=== PATIENT | male | born 1950 | race African-American/Black ===

== ENCOUNTER 2017-03-03 03:54 | Inpatient (IN) | payer OTHER ==
[~2017-03-03] VITALS: Ht 180.3 cm; Wt 129.4 kg
[2017-03-03] VITALS (44 sets, daily range): BP systolic 129–191; BP diastolic 70–127
--- NOTE | ~2017-03-03 | 2DMMODE ---
[facility] [address] [place] [address] 2 D/M-MODE ECHOCARDIOGRAM Name: LASHONDA BECKETT Room #: 246[facility] ..#: [id number] Admission: 03/03/17 Attend Phys: Jai Dawson, Discharge: Date of : 52 Date of Service: 03/03/17 1317 Report #: [id number] THIS REPORT FOR: //name// APPROVED REPORT Study performed: 03/03/2017 12:04:30 EXAM: Comprehensive 2D, Doppler, and color-flow Echocardiogram Patient Location: Bedside Room #: 246 Other Information Study Quality: Adequate Indications CVA/TIA Echo Enhancing Agent Indication: Rule out Shunt Agent(s) / Amount(s) Used: Agitated Saline 6 cc 2D Dimensions RVDd: 42.47 mm LVEF(%): 65.93 (>50%) IVSd: 15.26 (7-11mm) LVOT Diam: 22.27 (18-24mm) LVDd: 56.33 mm PWd: 13.85 (7-11mm) Ascending Ao: 37.78 (22-36mm) LVDs: 35.62 (25-40mm) Aortic Root: 32.62 mm IVC: 21.00 mm York's LVEF: 65.93 % Volumes Left Atrial Volume (Systole) Single Plane 4CH: 72.38 mL Single Plane 2CH: 99.19 mL LA ESV Index: 44.00 mL/m2 Aortic Valve AoV Peak Aric.: 1.71 m/s AO Peak Gr.: 11.68 mmHg LVOT Max P.12 mmHg LVOT Max V: 1.13 m/s RANDY Vmax: 2.58 cm2 Mitral Valve E/A Ratio: 1.6 MV Decel. Time: 238.80 ms [facility] [place] [address] 2 D/M-MODE ECHOCARDIOGRAM Name: LASHONDA BECKETT Room #: 246-[facility] IN M.R.#: [id number] Admission: 03/03/17 Attend Phys: Jai Dawson, Discharge: Date of : 52 Date of Service: 03/03/17 1317 Report #: [id number] E Max Aric.: 0.74 m/s MV A Aric.: 0.45 m/s MV PHT: 69.25 ms IVRT: 138.41 ms Pulmonary Valve PV Peak Aric.: 1.24 m/s PV Peak Gr.: 6.18 mmHg Pulmonary Vein P Vein S: 0.49 m/s P Vein A: 0.20 m/s P Vein D: 0.32 m/s P Vein A Dur.: 110.7 msec P Vein S/D Ratio: 1.53 Tricuspid Valve RAP Estimate: 10.00 mmHg Left Ventricle The left ventricle is normal size. Mild concentric left ventricular hypertrophy. There is no ventricular septal defect visualized. The left ventricular systolic function is normal. The left ventricular ejection fraction is within the normal range. LVEF is 65%. Moderate diastolic dysfunction is present (pseudonormal filling). Right Ventricle Right ventricle is dilated. The right ventricular systolic function is normal. Atria Left atrium is dilated. Injection of bubbles documented no interatrial shunt. The right atrium size is normal. Aortic Valve The aortic valve is normal in structure. Mild aortic regurgitation. There is no aortic valvular stenosis. Mitral Valve The mitral valve is normal in structure. No mitral regurgitation. No evidence of mitral valve stenosis. Tricuspid Valve The tricuspid valve is normal in structure. Trace tricuspid regurgitation. Unable to assess PA pressure. Pulmonic Valve The pulmonary valve is normal in structure. There is no pulmonic valvular regurgitation. [address] [address] 2 D/M-MODE ECHOCARDIOGRAM Name: LASHONDA BECKETT Room #: 246[facility].#: [id number] Admission: 03/03/17 Attend Phys: Jai Dawson, Discharge: Date of : 52 Date of Service: 03/03/17 1317 Report #: [id number] Great Vessels Aortic root is mildly dilated. The ascending aorta appears normal. IVC is mildly dilated and collapses about 50% with inspiration. Pericardium There is no pericardial effusion. There is no pleural effusion. <Conclusion> The left ventricular systolic function is normal. Mild concentric left ventricular hypertrophy. LVEF 65%. Left atrium is dilated. The aortic valve is grossly normal in structure. Mild aortic regurgitation, no stenosis. Injection of bubbles documented no shunting The mitral valve is normal in structure. No mitral regurgitation. Pulmonary artery pressure could not be reliably ascertained There is no pericardial effusion. <ELECTRONICALLY SIGNED> By: Abdi Ocasio MD, FACC 03/03/171316 16 16 Abdi Ocasio MD, FACC /INF
--- NOTE | ~2017-03-03 | HC ---
[facility] [place] [address] CONSULTATION Name: LASHONDA BECKETT Room #: 246-P [facility] IN M.R.#: [id number] Admission: 03/03/17 Attend Phys: Jai Dawson DO Discharge: 03/04/17 Date of : 52 Report #: [id number] THIS REPORT FOR: //name// CC: Jai Natarajan REASON FOR CONSULTATION: Hypertension. PRIMARY CARE PHYSICIAN: Salvatore Natarajan MD HISTORY OF PRESENT ILLNESS: The patient is a 66-year-old gentleman with a history of hypertension. He reports being out of medicines for several weeks. Apparently, this morning around 3:30, awakened with weakness of his right arm and leg. He had slurred speech. Paramedics were summoned, and he was brought to the emergency department where he was diagnosed with stroke and given thrombolytic therapy at 6:00 a.m. In the ICU, he has had blood pressure readings that have been in the 150-170 range. He has been evaluated by rehabilitation services as well as neurology who have recommended permissive hypertension with a blood pressure treatment of greater than systolic 190. He denies chest pain, pressure or ischemic type symptoms. He denies heart failure symptoms, palpitations, near-syncope or syncope. An echocardiogram was performed earlier today, which I have reviewed. This demonstrated normal left ventricular systolic function with LVH, no shunting and no valvular heart disease. ALLERGIES: No known drug allergies. MEDICATIONS: His home medicine which he has been out of includes losartan 100 mg daily. PAST MEDICAL HISTORY: His past history in medical records have been reviewed and include a history of hypertension, borderline diabetes, dyslipidemia. SOCIAL HISTORY: He is a nonsmoker, nondrinker. FAMILY HISTORY: Notable for father who had a heart attack at 60. REVIEW OF SYSTEMS: All systems negative except as that noted above. PHYSICAL EXAMINATION: GENERAL: A pleasant gentleman who has an expressive aphasia, is alert and responds in full sentences. VITAL SIGNS: Blood pressure is 170/113, heart rate of 55 and regular. He is afebrile, 5 feet 11 inches tall, 191 pounds. HEENT: There are neither xanthelasma, subcutaneous xanthomata, oral mucosal or digital cyanosis or kyphoscoliosis present. CHEST: Clear to auscultation and percussion. [facility] [address] [place] [address] CONSULTATION Name: LASHONDA BECKETT Room #: [address] [place] [address] IN M.R.#: [id number] Admission: 03/03/17 Attend Phys: Jai Dawson DO Discharge: 03/04/17 Date of : 52 Report #: [id number] CARDIOVASCULAR: Regular rate and rhythm with normal S1, S2. S4 gallop is present. ABDOMEN: Soft and nontender. EXTREMITIES: Without cyanosis, clubbing or edema. Radial pulses are 2+. NEUROLOGIC: He has right-sided weakness. LABORATORY AND DIAGNOSTIC DATA: EKG sinus rhythm with LVH with repolarization abnormality. Carotid duplex demonstrates 70% to 80% left mid internal carotid artery stenosis. MRA suggests severe diffuse atherosclerotic plaquing. There is high grade atherosclerotic narrowing throughout the basilar artery on the left. Sodium is 141, potassium 3.8. Troponin 0. Creatinine 1.2. LDL 145. White count 5.2, hemoglobin 13, hematocrit 41, platelet count 150. Sed rate of 8. IMPRESSION: 1. Stroke. 2. Hypertension. 3. Dyslipidemia. RECOMMENDATIONS: 1. Resumption of ARB therapy; aggressive risk factor modification including aggressive lipid-lowering. 2. As per neurology recommendations, treatment of systolic hypertension greater than 190 in the setting of an acute stroke, more aggressive therapy to follow. Thank you for asking me to participate in the patient's care. <ELECTRONICALLY SIGNED> By: Abdi Ocasio MD, FACC 03/05/17 1630 [id number] 0109 Abdi Ocasio MD, FACC /nt
--- NOTE | ~2017-03-03 | EKG ---
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 : 1950 Requested By: Celeste Gutierrez Order Number: [id number] MD: Abdi Ocasio Measurements Intervals [place] Rate: 60 P: 49 VA: 188 QRS: 19 QRSD: 112 T: 117 QT: 407 QTc: 407 Interpretive Statements Sinus rhythm Ventricular premature complex Abnormal T, consider ischemia, lateral leads No previous ECG available for comparison Electronically Signed On 03-03-2017 7:29:55 CDT by Abdi Ocasio [email or web address] <ELECTRONICALLY SIGNED> By: Abdi Ocasio MD, [facility] 03/03/17 0729 [id number] [id number] Abdi Ocasio MD, FACC /EPI
--- NOTE | ~2017-03-03 | HC ---
[facility] [address] CONSULTATION Name: LASHONDA BECKETT Room #: 246-P [facility] IN M.R.#: [id number] Admission: 03/03/17 Attend Phys: Jai Dawson DO Discharge: Date of : 52 Report #: [id number] THIS REPORT FOR: //name// CC: Jai Natarajan DATE OF SERVICE: 03/03/2017 HISTORY OF PRESENT ILLNESS: This is a 66-year-old male patient, who was seen by me at the referral from Dr. Gutierrez from emergency room. This is a complex patient. The patient is aphasic at the moment and is not able to provide much history because his speech output is extremely limited, so I talked to the . This patient woke up at 03:30 in the morning and was not able to move the right side. He was brought to emergency room and the ambulance people documented that his symptom fully resolved on the way to emergency room. The patient had a reoccurrence of the symptoms, but it fully resolved in CT scan again. So, there is true clear cut documentation that the patient's symptom fully resolved and then came back. If we reset the time clock for the onset of symptoms, then the onset of symptom according to emergency room physician was about 1.5 hour or so. The patient's blood pressure was high. As I understand, the emergency room physician gave a small amount of medication to them. When I saw the patient, the blood pressure was running in fact low at 146/96. Emergency room physician went over the exclusion criteria and this patient apparently does not have any exclusion criteria. I talked to the family and they do not think this patient has any exclusion criteria either. REVIEW OF SYSTEMS: Indicate when the patient came in, his blood pressure was high, but patient is not a known hypertensive. I looked at the report of the CT scan of the head in this patient and I reviewed the films and I talked to Dr. Campos and neither one of us feel that CT has much changes, looks normal to both of us. The patient denies any previous history of stroke or bleed. Review of systems is mostly from the family. The patient still works and he is fully functional. He is pretty anxious and depressed because of his inability to talk. He denies any previous history of CVA. I did 14-point review of systems on him, which was mostly noncontributory in this patient. PAST MEDICAL HISTORY: Negative for stroke. FAMILY HISTORY: Negative for early age stroke. SOCIAL HISTORY: He apparently does not drink or smoke. PHYSICAL EXAMINATION: The patient's examination was carried out numerous times. His examination is pretty persistent. He can comprehend things, but he has very limited speech output. Whatever speech output he has, is un-understandable, but he can follow commands. He understands things very well. [facility] [address] [place] [address] CONSULTATION Name: LASHONDA BECKETT Room #: 246-P [facility] IN M.R.#: [id number] Admission: 03/03/17 Attend Phys: Jai Dawson DO Discharge: Date of : 52 Report #: [id number] His comprehension is intact. Cranial nerve examination 2-12 was carried out. He does have a right facial palsy, but I do not think he has hemianopsia, but I cannot tell for sure. He has virtually no movement in the right upper extremity. Most of the time and sometime, he has a small flicker of movement. He does have slight movement in the right lower extremity, but I will estimate it to be about 2/5. Sensory system examination is difficult in this patient, but I think he can appreciate the position sense. His reflexes are symmetrical. I could not look at the fundus. He does not have any atrial fibrillation. He does not have any respiratory difficulty. He is obese. His blood pressure is 146/96, respirations 14, pulse is 54. LABORATORY DATA: His labs are mostly unremarkable. His platelet count is 150, his pro-time is normal. His INR was normal. I reviewed this patient's CT angio with radiologist. He apparently does have a pretty extensive disease in the left carotid. He has a calcified plaque there. He also has intracranial cranial disease. IMPRESSION: Left-sided cerebrovascular accident. This is most likely subcortical. This may be secondary to embolization from the carotid or can be lacunar cerebrovascular accident for any other reason. He does have a significant carotid disease as well as intracranial disease making it very likely that it is cerebrovascular accident. I had a long talk with the patient. I had multiple subsequent talks with the patient and the family, and I discussed with emergency room physician. I discussed with them that the things are not straight forward in his case. I discussed with them that we cannot say with certainty that the first episode was transient ischemic attack and was not a stroke. His symptom lasted only a small amount of time. By using the old definition of transient ischemic attack, where we call it transient ischemic attack when symptoms resolve in 24 hours. The definition is not very favored these days, and we do not have time to do the imaging studies, to do further workup. Since there is documentation of his symptoms fully resolved, and we can reset the clock, but we cannot be certain that he did not have a cerebrovascular accident prior to his last onset of the symptom even if his symptoms have fully resolved by the time he came to emergency room and came back. That makes it very difficult to make a decision. His cerebrovascular accident looked dense. He has an option of getting TPA by resetting the clock or not having the TPA, and family and the patient needs to make that decision. After discussing with them indication, potential complications and alternatives, the family and the patient decided they want TPA. They fully understand the complication of intracerebral hemorrhage and the fact that intracerebral hemorrhage is frequently fatal and almost always disabling if it happens. His blood pressure has been running low, but he only received a small amount of medication as I understand from emergency room physician. I asked them to give a fluid bolus and tried to raise his blood pressure to some extent, but not by using any vasopressive agent. [facility] [address] [place] [address] CONSULTATION Name: LASHONDA BECKETT Room #: 246-P ADM IN M.R.#: [id number] Admission: 03/03/17 Attend Phys: Jai Dawson DO Discharge: Date of : 52 Report #: [id number] I have carried out multiple exams on this patient and discussed with the family, and each time they wanted to do TPA, and we will see how he does, and he will need further management depending upon how he tolerates TPA. Once again, I want to stress that we have talked to the family multiple times, and I discussed with them that there is no clearcut path in this situation. With resetting the time, his symptoms are within 1.5 hours or so according to the emergency room physician, but definitely less than 3 hours, and his TPA was given after explaining things to them very clearly, and the fact that complication rate is going to be higher on him, but his stroke is dense and the situation is not clear, and the decision is subjective. All other options were discussed with the family in detail. It was also discussed with the patient, who is competent to make his decision because he can comprehend everything. More than 50 minutes of face to face time was spent taking care of this patient and majority of that time was spent counseling the patient and and cordinating his care <ELECTRONICALLY SIGNED> By: Manfred Navarrete MD 03/04/17 0639 0625 0758 Manfred Navarrete MD /nt
--- NOTE | ~2017-03-03 | HC ---
[facility] [place] [address] CONSULTATION Name: LASHONDA BECKETT Room #: 246-P [facility] IN M.R.#: [id number] Admission: 03/03/17 Attend Phys: Jai Dawson DO Discharge: Date of : 52 Report #: [id number] THIS REPORT FOR: //name// CC: Jai Natarajan DATE OF SERVICE: 03/03/2017 HISTORY OF PRESENT ILLNESS: The patient is a 66-year-old male with history of hypertension, admitted with slurred speech, right-sided weakness. He underwent emergency TPA. Evaluation revealed multiple intracranial stenoses, moderate stenosis, left proximal internal carotid artery. Neurology is involved. He is currently in the ICU post-TPA. He notes that he has had nice resolution of symptomatology. He is able to talk again and move his right upper and right lower extremity. He denies any residual deficit. I am seeing him in rehabilitation medicine consultation. PAST MEDICAL HISTORY: Includes hypertension and borderline diabetes mellitus and hyperlipidemia. MEDICATIONS: Please see the full medication listing. HABITS: No history of tobacco or alcohol abuse. SOCIAL HISTORY: Lives in a house with his split level, premorbid ambulator without gait aids. does not work outside the home. REVIEW OF SYSTEMS: No current complaints of chest pain, shortness of breath or abdominal discomfort. ALLERGIES: No known drug allergies. PHYSICAL EXAMINATION: He is a pleasant 66-year-old male in no obvious distress. Last recorded temperature 96.6, pulse 55, respirations 16, blood pressure 157/82. The patient is alert. He is pleasant. HEENT appeared to be benign. Cranial nerves are grossly intact. Facies are symmetric. He is able to verbalize quite well from me, appears to be a reasonable historian. He has full range of motion and full strength of both upper and lower extremities without obvious focal weakness. No obvious focal sensory decreased. Tone appeared to be intact bilaterally. He was not ambulated. He continues in the Intensive Care Unit for right now. ASSESSMENT: A 66-year-old male with the following problem list: 1. Cerebrovascular accident with slurred speech and right-sided weakness, now improved post TPA. [address] [address] CONSULTATION Name: LASHONDA BECKETT Room #: 246-P ADM IN M.R.#: [id number] Admission: 03/03/17 Attend Phys: Jai Dawson DO Discharge: Date of : 52 Report #: [id number] 2. Multiple intracranial stenoses with moderate stenosis, left proximal internal carotid artery. 3. Hypertension. 4. Diabetes mellitus. 5. Exogenous obesity. PLAN: He has been on bed rest status post the TPA. The therapist will then be getting him up once he is allowed for a functional mobility and ADL assessment. Speech therapy will evaluate as well. Would anticipate that he will likely be able to return directly back to the home setting as he further medically stabilizes. We will be glad to follow along with you in the meantime. By: 1029 1606 Reinaldo Lou MD /nt
[2017-03-03 04:13] LABS: ABSOLUTE NEUTROPHILS 2.4 thou/uL (1.4-8.2); BASOPHILS 0.5 % (0.0-2.0); HEMATOCRIT 41.3 % (42.0-52.0); HEMOGLOBIN 13.7 gm/dL (14.0-18.0); LYMPHOCYTES 36.2 % (24.0-44.0); MANUAL DIFF NO; MCH 28.3 pg (26.0-34.0); MCHC 33.2 g/dL (28.0-37.0); MCV 85.1 fL (80.0-100.0); MONOCYTES 11.7 % (1.0-8.0); PLATELET COUNT 150 thou/uL (150-400); POLYS 46.6 % (36.0-66.0); RBC 4.85 mil/uL (4.50-6.00); RDW 14.9 % (10.5-14.5); WBC 5.2 thou/uL (4.0-11.0)
[2017-03-03 04:20] LABS: PROTIME 10.1 Seconds (9.3-11.4)
[2017-03-03 04:22] LABS: POC CA IONIZED 4.6 mg/dL (4.5-5.3); POC CREATININE 1.2 mg/dL (0.6-1.3); POC HEMOGLOBIN 14.3 g/dL (14.0-18.0); POC POTASSIUM 3.8 mmol/L (3.5-5.1)
[2017-03-03] MEDS ORDERED: LOSARTAN POTAS100 MG PO (05:03)
[2017-03-03 06:44] LABS: TC:HDL 5.2 Ratio (Not establshd)
[2017-03-03 07:09] LABS: TSH 3.794 uIU/mL (0.358-3.740)
[2017-03-03 18:10] LABS: FREE T4 0.9 ng/dL (0.82-1.77)
[2017-03-04] VITALS (24 sets, daily range): BP systolic 116–160; BP diastolic 66–108
[2017-03-04 03:18] LABS: GLYCOHEMOGLOBIN (HGB A1C) 5.8 % (4.8-5.6)
[2017-03-06 14:06] LABS: ALPHA TOCOPHEROL 10.3 mg/L (5.3-17.5)
== END 2017-03-04 17:15 | DRG 62 ==
LOC: ER 03:54 → ICU 05:57 → EROBS 05:57 → ICU 07:08
PROVIDERS: Emergency Medicine; Psychiatry & Neurology Neurology
DX: I63.9 Cerebral infarction, unspecified (principal); G81.91 Hemiplegia, unspecified affecting right dominant side; R47.81 Slurred speech; E78.5 Hyperlipidemia, unspecified; I10 Essential (primary) hypertension; E11.9 Type 2 diabetes mellitus without complications; I65.22 Occlusion and stenosis of left carotid artery; E66.09 Other obesity due to excess calories; I66.12 Occlusion and stenosis of left anterior cerebral artery; I65.1 Occlusion and stenosis of basilar artery; I66.22 Occlusion and stenosis of left posterior cerebral artery; I66.01 Occlusion and stenosis of right middle cerebral artery; R00.1 Bradycardia, unspecified; Z82.49 Family history of ischemic heart disease and other diseases of the circulatory system; Z68.39 Body mass index [BMI] 39.0-39.9, adult; Z80.9 Family history of malignant neoplasm, unspecified; Z82.3 Family history of stroke; Z83.3 Family history of diabetes mellitus; Z79.82 Long term (current) use of aspirin; Z79.899 Other long term (current) drug therapy; W06.XXXA Fall from bed, initial encounter; Y93.89 Activity, other specified; Y92.092 Bedroom in other non-institutional residence as the place of occurrence of the external cause; Y99.8 Other external cause status
CPT/HCPCS: 10078

== ENCOUNTER 2017-03-04 17:07 | Inpatient (IN) | payer OTHER ==
[~2017-03-04] VITALS: Ht 180.3 cm; Wt 136.1 kg
--- NOTE | ~2017-03-04 | H ---
[facility] [place] [address] HISTORY AND PHYSICAL Name: LASHONDA BECKETT Room #: 516-1 ADM IN M.R.#: [id number] Admission: 03/04/17 Attend Phys: Reinaldo Lou MD Discharge: Date of : 52 Report #: [id number] THIS REPORT FOR: //name// CC: Reinaldo Natarajan DATE OF SERVICE: 03/05/2017 ADMITTING PHYSICIAN: Dr. Reinaldo Lou. CHIEF COMPLAINT: Mobility and self-care deficits due to cerebrovascular accident. HISTORY OF PRESENT ILLNESS: The patient is a very pleasant 66-year-old right hand dominant male with a history of hypertension who was admitted to [facility] on 03/03/2017 with slurred speech and right-sided weakness. He is seen today in the company of his . A workup was performed. He was felt to have a cerebrovascular accident and he received TPA. He was seen by Internal Medicine. An MRI of the brain demonstrated an acute or subacute infarct involving the left lower luigi at the level of the middle cerebellar peduncle. MRI of the [place] [facility] [place] showed severe diffuse atherosclerotic plaque narrowing throughout the cerebral arterial vasculature. MRI of the carotids was read as normal on the right and a moderately severe narrowing of the left internal carotid. It was determined that he would need additional rehabilitation for when he was found to be medically ready for discharge. Secondary to a decline in his overall function and the need for rehabilitation management of his complex medical condition as outlined above, he is now being admitted to the inpatient rehabilitation program. Note, I am covering for Dr. Reinaldo Lou and he will return to the office on March 07. PAST MEDICAL HISTORY: As above, also pertinent for hypertension, moderate obesity, borderline diabetes mellitus and hyperlipidemia. PAST FAMILY HISTORY: Heart disease, cancer, diabetes, hypertension, and stroke. MEDICATIONS: Reviewed. Please see the written documentation of this history and physical. His medications have been reconciled. SOCIAL HISTORY: He lives with his in their own home. It is a split level home. 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 Tobacco use, never smoked. FUNCTIONAL HISTORY: Before admission, he was fully independent with mobility and activities of daily living. [address] [address] HISTORY AND PHYSICAL Name: LASHONDA BECKETT Room #: 516-1 ADM IN .R.#: [id number] Admission: 03/04/17 Attend Phys: Reinaldo Lou MD Discharge: Date of : 51 Report #: [id number] ALLERGIES: No known drug allergies. REVIEW OF SYSTEMS: As above. Specifically, he denies chest pain, shortness of breath, fevers and chills. He has right-sided weakness. Otherwise, the remainder of a 14-point review is negative except for what was stated above. PHYSICAL EXAMINATION: GENERAL: No acute distress, well-developed, well-nourished, afebrile. BMI of 39.8. CARDIOVASCULAR: S1, S2. LUNGS: Clear to auscultation. ABDOMEN: Soft, nontender, positive bowel sounds. EXTREMITIES: Calves are nontender. LYMPHATICS: No cervical adenopathy. MUSCULOSKELETAL: Functionally, he shows inability to dorsiflex his right wrist or extend his fingers on the right. He is unable to dorsiflex his right ankle. He has no power to lift his right arm and will need support. He also has very limited motion of his right leg. Tone is flaccid on the right. NEUROLOGIC AND PSYCHIATRIC: Coordination is impaired. Muscle stretch reflexes 1/4 and symmetric. Sensation impaired in his feet. He is alert and able to answer my questions. He has mild right-sided neglect and a mild right visual field deficit. He was alert and oriented, able to answer my questions well. He was pleasant and cooperative. There is mild expressive aphasia identified. He appears to have good executive receptionist, pleasant and cooperative with the exam. IMPRESSION: Mobility and self-care deficits in a 66-year-old right hand dominant male secondary to: 1. Dominant-sided hemiparesis, right side, flaccid tone. 2. Acute cerebrovascular accident involving the left lower luigi at the level of the middle cerebellar peduncle, infarction. 3. Mild right visual field deficit. 4. Expressive aphasia 5. Dysarthria. 6. Improving comprehension deficit. 7. Mild right-sided visual field deficit and neglect. 8. Right foot drop. 9. At risk for shoulder-hand syndrome due to severity of right upper extremity weakness. 10. Dysphagia, currently receiving a mechanical soft diet with thin liquids. 11. Right foot drop, likely requiring an ankle foot orthosis. 12. Hypertension. 13. Borderline diabetes mellitus type 2. 14. Hyperlipidemia. PLAN: 1. Admit to the rehabilitation unit for comprehensive therapies. [address] [address] HISTORY AND PHYSICAL Name: LASHONDA BECKETT Room #: 516-1 ADM IN Bart.#: [id number] Admission: 03/04/17 Attend Phys: Reinaldo Lou MD Discharge: Date of : 51 Report #: [id number] 2. Admit to Dr. Lou's service. 3. Please see the plan of care, post-admission physician evaluation and admission orders for full details of his rehabilitation care plan. 4. Discussed the rehabilitation program with him and his in detail and they are in full agreement with the program. 5. Discussed recovery process and pathophysiology with the patient and his . 6. Developed a rehabilitation program with his therapy team, reviewed the case with Britni, speech therapy today and she would like him to have a mechanical soft with thin liquid diet based on his performance this morning with her on testing. 7. Weekly team conferences to discuss his rehabilitation progress. 8. Functional electrical stimulation may be beneficial for the right upper and lower extremity to help promote return. 9. Use of sling for right upper extremity to prevent shoulder-hand syndrome. 10. The absence of active right wrist dorsiflexion and finger extension indicates more severe functional disability. We will need to work with occupational therapy on bracing 11. Bowel and bladder program. 12. Use of AFO for right lower extremity foot drop. POST-ADMISSION PHYSICIAN EVALUATION: A post-admission physician evaluation has been completed. The patient's preadmission screening was reviewed in its entirety by this examiner. The current clinical status is supported by the information contained within. The patient is an appropriate candidate to undergo a comprehensive inpatient rehabilitation program consisting of PT, OT and ST 3 hours a day for at least 5 days per week. Furthermore, nothing has changed since the preadmission screening was completed to suggest that the patient would not be able to tolerate or benefit from the rehabilitation program. It is my opinion that inpatient rehabilitation, rather than group home, is more appropriate for the patient due to multiple medical needs, requiring comprehensive followup care. The patient is at risk of clinical complications during participation in rehabilitation including falls, additional strokes, worsening of diabetes, worsening of deficits, aspiration pneumonia, hypertension management, prevention of DVT, pressure ulcers, falls and even . My plan to manage his comorbid medical conditions which could impact his participation in rehabilitation is to consult Internal Medicine and to follow him closely during his rehabilitation course. SUMMARIZATION OF FINDINGS: The patient is receiving inpatient rehabilitation due to the following functional impairments: 1. Dominant-sided hemiparesis, flaccid tone. 2. Right foot drop. [facility] [address] [place] [address] HISTORY AND PHYSICAL Name: LASHONDA BECKETT Room #: 516-1 ADM IN [facility].#: [id number] Admission: 03/04/17 Attend Phys: Reinaldo Lou MD Discharge: Date of : 51 Report #: [id number] 3. Right visual field impairment. 4. Right-sided neglect. 5. Dysphagia. 6. Dysarthria. 7. Expressive aphasia greater than receptive aphasia. 8. Gait impairment. 9. Ataxia. IDENTIFIED INTERVENTIONS: Include physical therapy, occupational therapy and speech therapy to address mobility, self-care deficits, communication, cognitive screening and swallowing impairments. Physical Medicine and Rehabilitation will provide management of his rehabilitation care plan. Internal Medicine will follow him for multiple medical issues. Rehabilitation nursing care 24 hours a day will be available for care needs. managed services sales consultant will be available for discharge planning and medical equipment needs. A dietitian consultation may be needed for nutritional purposes. ESTIMATED LENGTH OF STAY: Approximately 21 days, which is in agreement with the preadmission screen. ANTICIPATED FUNCTIONAL OUTCOME: Modified independent with mobility and self-care skills. This is a realistic goal based on his previous level of function and progress thus far with therapies. ANTICIPATED DISCHARGE DESTINATION: Home with family. He will likely need home health services at that time versus an outpatient intensive rehabilitation day program. MEDICAL PROGNOSIS: Fair. He will continue to receive internal medicine followup. ANTICIPATED THERAPIES: Physical therapy, occupational therapy, speech therapy, 3 hours a day 5 days a week for anticipated duration of 21 days. SUMMARIZATION OF TREATMENT PLAN: The patient will continue to receive an inpatient rehabilitation program as outlined above in an effort to improve his overall function and return home at a modified independent level within 21 days. <ELECTRONICALLY SIGNED> By: Reinaldo Lou MD 03/15/17 1505 [id number] Dion Villanueva DO /nt
--- NOTE | ~2017-03-04 | PLAN ---
[facility] [place] [address] REHAB UNIT PLAN OF CARE Name: LASHONDA BECKETT Room #: 516-1 ADM IN M.R.#: [id number] Admission: 03/04/17 Attend Phys: Reinaldo Lou MD Discharge: Date of : 51 Report #: [id number] THIS REPORT FOR: //name// CC: Reinaldo Natarajan DATE OF SERVICE: 03/07/2017 The patient is seen back today in followup. Temperature is 98.4, pulse 59, respirations 20, blood pressure 116/77. The patient apparently had some good recovery initially after his TPA, but then regressed. He has dense right upper extremity plegia. He can shrug his shoulder. Right lower extremity, he does have grade 2 right knee extension to grade 3-. No right knee flexion and no ankle dorsiflexion. Sensation appeared reasonably intact to simultaneous stimulation. Functionally, he is mod assist with basic transfers, bed to wheelchair is max assist, he has been max assist to sit to stand. In occupational therapy, lower body dressing is dependent. In speech therapy, he has mild comprehensive deficits. He is on a mechanical soft, thin liquid diet. ASSESSMENT: 1. Acute cerebrovascular accident, left lower luigi with infarction. 2. Dominant right-sided hemiparesis with essentially right upper extremity plegia and right lower extremity paresis. Flaccid tone. 3. Dysarthria with some depressed right nasolabial fold. 4. Mild right visual deficit. 5. Hypertension. 6. Borderline diabetes mellitus type 2. 7. Hyperlipidemia. 8. At risk for shoulder hand syndrome due to the severity of the right upper extremity weakness. PLAN: The overall plan of care is based on the preadmission screen, post-admission physician evaluation and information garnered from therapy assessments. 1. Estimated length of stay is likely long with his low level. 2. Medical prognosis is reasonably good. 3. Anticipated interventions includes the interdisciplinary acute inpatient rehabilitation program. PT, OT and speech rehab nursing, case management and the multiple nutrition consultant physicians. 4. Anticipated functional outcomes at this point would be to try to work with him to become independent at a wheelchair level. Family does have a split level home, which is going to be an issue. 5. Expected therapy by discipline includes PT, OT and speech 1 hour per day [address] [address] REHAB UNIT PLAN OF CARE Name: LASHONDA BECKETT Room #: 516-1 ADM IN .R.#: [id number] Admission: 03/04/17 Attend Phys: Reinaldo Lou MD Discharge: Date of : 51 Report #: [id number] each 5 days a week throughout the duration of the acute inpatient rehabilitation stay. <ELECTRONICALLY SIGNED> By: Reinaldo Lou MD 03/15/17 1515 [id number] Reinaldo oLu MD /nt
--- NOTE | ~2017-03-04 | HC ---
[facility] [place] [address] CONSULTATION Name: LASHONDA BECKETT Room #: 516-1 ADM IN M.R.#: [id number] Admission: 03/04/17 Attend Phys: Reinaldo Lou MD Discharge: Date of : 51 Report #: [id number] THIS REPORT FOR: //name// CC: Reinaldo Natarajan DATE OF SERVICE: 03/12/2017 NEUROBEHAVIORAL STATUS EXAM AGE: 66. ATTENDING PHYSICIAN: Reinaldo Lou M.D. HERB DOCTOR: Gerard Becker, PhD CLINICAL PRESENTATION: The patient is a 66-year-old -[place] male admitted to the [facility] rehabilitation unit for a comprehensive inpatient rehabilitation program to improve functional mobility and activities of daily living and self-care secondary to cerebrovascular accident. He presented to the [facility] on 03/03/2017, with slurred speech and hemiparesis. He was diagnosed as having a CVA and administered TPA. An MRI of the brain demonstrated an acute or subacute infarction involving the left lower luigi at the level of the middle cerebellar peduncle. MRI of the [place] reveals severe diffuse atherosclerotic plaque narrowing. Clinical impression on admission was a dominant side hemiparesis, acute CVA involving the left lower luigi at the middle cerebellar peduncle, mild right visual field deficit, expressive aphasia, dysarthria, improving comprehension, mild right-sided visual field deficit, right foot drop, and dysphagia, right and hypertension, borderline diabetes mellitus type 2 and hyperlipidemia. A complete description of his medical condition and history along with medications can be found in his medical record. Neuropsychological consultation was requested to provide assistance in the assessment of cognitive and emotional status and to provide recommendations and services. Prior to this most recent medical event, he was living independently with his in their home. 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 He is a high school graduate. He has 2 children. There is no reported history of anxiety or depression. There is also no history of alcohol/drug abuse or use of tobacco. TECHNIQUES UTILIZED: Clinical interview, review of medical records, staff consultation and behavioral observation, mini mental status exam 2 standard version and family interview -- . [address] [address] CONSULTATION Name: LASHONDA BECKETT Room #: 516-1 ADM IN M.R.#: [id number] Admission: 03/04/17 Attend Phys: Reinaldo Lou MD Discharge: Date of : 51 Report #: [id number] EXAMINATION FINDINGS: The patient was alert and cooperative with the assessment. He accurately described events surrounding his admission. He does present with expressive speech deficits and dysarthria. Auditory comprehension appears within normal limits. The patient does not report subjective anxiety or depression. However, his indicates that at times he is more irritable. He was tearful during his hospitalization. The patient also indicates difficulty with sleep. Appetite is within normal limits. Occasional difficulty with memory is acknowledged. Speech does require more effort and he is described as getting more fatigued with therapies. When more fatigue deficits in generative speech. His performance on the MMSE 2 brief version is in the mild range of impairment with a raw score of 13 of 16 and a T score of 35. He is 3/3 for initial registration, 4/5 for orientation to time, 5/[address]. He is 1/3 for immediate recall of 3 items after a brief time delay and distraction. His performance is in the borderline range on the MMSE 2 standard version with a raw score of 23/30 and a T score of 33, which is at the fourth percentile and suggesting mild to moderate impairment. He was 2/5 for serial sevens, 2/2 for naming, 1/1 for repetition. He was 3/3 for auditory comprehension. He could read and follow a single command. Writing was not assessed, but he was able to generate a sentence. Drawing could not be completed as a result of the right hemiparesis. Letter fluency was in the mild range of impairment with a raw score of 15 and a T score at 38. Category fluency was in the mild range of impairment with a raw score at 32 and a T score at 38. Overall, verbal fluency was in the mild to moderate range with a T score of 34. DIAGNOSTIC IMPRESSION: Neurocognitive disorder due to vascular disease, with intermittent depression, mild to moderate severity. RECOMMENDATIONS: Continued psychological services as needed to assist in adjustment. The patient will benefit from verbal praise and complements about participation in therapies. Reassurance in regard to his medical condition and recovery will also be of benefit. His will need to provide assistance in the management of medication and nutrition. Compensatory strategies should primarily focus on memory and strategies for improvement in verbal fluency along with attention and concentration. Thank you very much for allowing me to provide the consultation on this patient. <ELECTRONICALLY SIGNED> By: Gerard Becker, PhD 03/19/17 1533 1623 [id number] Gerard Becker, PhD /nt
[~2017-03-04 17:07] MED LIST: LOSARTAN POTAS100 MG PO
[2017-03-04 17:45] VITALS: BP 146/86
[2017-03-05 03:41] VITALS: BP 140/80
[2017-03-05 16:00] VITALS: BP 129/75
[2017-03-06 05:08] VITALS: BP 127/88
[2017-03-06 16:00] VITALS: BP 125/63
[2017-03-07 05:30] VITALS: BP 116/77
[2017-03-07 06:08] LABS: CALCIUM 8.4 mg/dL (8.5-10.1); CREATININE 1.1 mg/dL (0.7-1.3)
[2017-03-07 16:30] VITALS: BP 134/67
[2017-03-07 21:15] VITALS: BP 140/79
[2017-03-08 04:03] VITALS: BP 108/71
[2017-03-08 11:15] VITALS: BP 143/97
[2017-03-09 05:34] VITALS: BP 129/82
[2017-03-09 15:45] VITALS: BP 125/77
[2017-03-10 05:26] VITALS: BP 110/67
[2017-03-10 14:55] VITALS: BP 125/79
[2017-03-10 14:57] VITALS: BP 107/70
[2017-03-11 03:31] VITALS: BP 128/77
[2017-03-11 03:32] LABS: CALCIUM 8.5 mg/dL (8.5-10.1); POTASSIUM 3.9 mmol/L (3.5-5.1)
[2017-03-11 04:35] LABS: ABSOLUTE NEUTROPHILS 2.5 thou/uL (1.4-8.2); BASOPHILS 0.5 % (0.0-2.0); EOSINOPHILS 5.4 % (0.0-3.0); HEMATOCRIT 38.6 % (42.0-52.0); HEMOGLOBIN 12.8 gm/dL (14.0-18.0); LYMPHOCYTES 29.4 % (24.0-44.0); MCH 28.6 pg (26.0-34.0); MCV 86.5 fL (80.0-100.0); MONOCYTES 11.5 % (1.0-8.0); PLATELET COUNT 157 thou/uL (150-400); POLYS 53.2 % (36.0-66.0); RBC 4.47 mil/uL (4.50-6.00); RDW 14.6 % (10.5-14.5); WBC 4.7 thou/uL (4.0-11.0)
[2017-03-11 04:47] LABS: MANUAL DIFF NO
[2017-03-11 19:10] VITALS: BP 139/89
[2017-03-12 05:57] VITALS: BP 113/76; BP 136/84
[2017-03-12 16:00] VITALS: BP 128/73
[2017-03-13 05:42] VITALS: BP 106/75
[2017-03-13 08:55] VITALS: BP 121/75
[2017-03-13 16:07] VITALS: BP 143/81
[2017-03-14 04:54] VITALS: BP 124/76
[2017-03-14 09:07] VITALS: BP 139/75
[2017-03-14 10:06] VITALS: BP 106/62
[2017-03-14 16:00] VITALS: BP 132/78
[2017-03-15 05:31] VITALS: BP 110/69
[2017-03-15 16:00] VITALS: BP 120/72
[2017-03-16 06:06] VITALS: BP 110/70
[2017-03-16 08:30] VITALS: BP 121/77
[2017-03-16 18:54] VITALS: BP 126/70
[2017-03-17 05:33] VITALS: BP 118/70
[2017-03-17 15:39] VITALS: BP 132/83
[2017-03-18 06:04] VITALS: BP 111/61
[2017-03-18 08:50] VITALS: BP 122/69
[2017-03-18 15:56] VITALS: BP 133/89
[2017-03-19 05:33] VITALS: BP 121/67
[2017-03-19 09:00] VITALS: BP 111/63
[2017-03-19 16:10] VITALS: BP 139/82
[2017-03-20 05:10] VITALS: BP 103/74
[2017-03-20 16:00] VITALS: BP 130/85
[2017-03-21 04:35] VITALS: BP 107/56
[2017-03-21 08:05] VITALS: BP 122/78
[2017-03-21 16:00] VITALS: BP 140/69
[2017-03-22 04:48] VITALS: BP 120/76
[2017-03-22 15:41] VITALS: BP 115/70
[2017-03-23 05:21] VITALS: BP 110/86
[2017-03-23 08:05] VITALS: BP 126/85
[2017-03-23 16:49] VITALS: BP 128/94
[2017-03-24 06:08] VITALS: BP 103/77
[2017-03-24 06:11] LABS: ABSOLUTE NEUTROPHILS 1.9 thou/uL (1.4-8.2); BASOPHILS 0.8 % (0.0-2.0); EOSINOPHILS 5.2 % (0.0-3.0); HEMOGLOBIN 12.9 gm/dL (14.0-18.0); LYMPHOCYTES 37.7 % (24.0-44.0); MCH 28.6 pg (26.0-34.0); MCV 84.2 fL (80.0-100.0); MONOCYTES 8.7 % (1.0-8.0); PLATELET COUNT 204 thou/uL (150-400); POLYS 47.6 % (36.0-66.0); RBC 4.52 mil/uL (4.50-6.00); RDW 13.7 % (10.5-14.5)
[2017-03-24 06:21] LABS: MANUAL DIFF NO
[2017-03-24 06:23] LABS: CALCIUM 8.8 mg/dL (8.5-10.1); CREATININE 1.2 mg/dL (0.7-1.3); MAGNESIUM 1.8 mg/dL (1.8-2.4)
[2017-03-24 10:13] VITALS: BP 145/80
[2017-03-24 16:00] VITALS: BP 122/85
[2017-03-25 05:42] VITALS: BP 143/66
[2017-03-25 16:38] VITALS: BP 126/75
[2017-03-26 05:26] VITALS: BP 134/86
[2017-03-26 16:51] VITALS: BP 130/88
[2017-03-27 04:55] VITALS: BP 128/76
[2017-03-27 09:21] VITALS: BP 121/78
[2017-03-27 16:53] VITALS: BP 126/84
[2017-03-28 05:42] VITALS: BP 123/83
[2017-03-28 08:55] VITALS: BP 130/84
[2017-03-28 15:43] VITALS: BP 131/84
[2017-03-29 05:58] VITALS: BP 141/75
[2017-03-29 08:00] VITALS: BP 148/92
[2017-03-29 16:00] VITALS: BP 154/94
[2017-03-30 05:45] VITALS: BP 121/64
[2017-03-30] MEDS ORDERED: PROZAC20 MG PO (10:38)
[2017-03-30] MEDS ORDERED: PROTONIX40 M1 PO (10:38)
[2017-03-30] MEDS ORDERED: LOSARTAN POTAS100 MG PO (10:38)
[2017-03-30] MEDS ORDERED: MIRALAX17 GM PO (10:38)
[2017-03-30] MEDS ORDERED: ASPIRIN EC325 M1 PO (10:38)
[2017-03-30] MEDS ORDERED: SENNA PO (10:38)
[2017-03-30] MEDS ORDERED: TYLENOL325 MG PO (10:38)
[2017-03-30] MEDS ORDERED: FELODIPINE 5 MG5 M1 PO (10:38)
[2017-03-30] MEDS ORDERED: COLACE100 MG PO (10:38)
[2017-03-30] MEDS ORDERED: LIPITOR 20 MG T20 M1 PO (10:38)
[2017-03-30 16:00] VITALS: BP 144/98
[2017-03-31 06:51] VITALS: BP 109/72
[2017-03-31 16:38] VITALS: BP 109/72
[2017-04-01 05:43] VITALS: BP 123/64
[2017-04-01 15:48] VITALS: BP 147/87
[2017-04-02 05:51] VITALS: BP 122/79
[2017-04-02 08:06] VITALS: BP 127/90
== END 2017-04-02 14:30 | disposition home health service (06) | DRG 65 ==
PROVIDERS: Internal Medicine Endocrinology, Diabetes & Metabolism; Nurse Practitioner
DX: I63.9 Cerebral infarction, unspecified (principal); G81.91 Hemiplegia, unspecified affecting right dominant side; Z68.41 Body mass index [BMI] 40.0-44.9, adult; R47.1 Dysarthria and anarthria; I10 Essential (primary) hypertension; E78.5 Hyperlipidemia, unspecified; R47.81 Slurred speech; R47.01 Aphasia; R13.10 Dysphagia, unspecified; F01.50 Vascular dementia, unspecified severity, without behavioral disturbance, psychotic disturbance, mood disturbance, and anxiety; F32.9 Major depressive disorder, single episode, unspecified; E66.9 Obesity, unspecified; M21.371 Foot drop, right foot; K59.00 Constipation, unspecified; M21.331 Wrist drop, right wrist; Z82.49 Family history of ischemic heart disease and other diseases of the circulatory system; Z80.9 Family history of malignant neoplasm, unspecified; Z83.3 Family history of diabetes mellitus; Z82.3 Family history of stroke
CPT/HCPCS: 10112

== ENCOUNTER 2017-04-08 16:36 | Emergency (ER) | payer OTHER ==
[~2017-04-08] VITALS: Ht 185.4 cm; Wt 132.9 kg
[~2017-04-08 16:36] MED LIST changes: +ASPIRIN EC325 M1 PO; +COLACE100 MG PO; +FELODIPINE 5 MG5 M1 PO; +LIPITOR 20 MG T20 M1 PO; +MIRALAX17 GM PO; +PROTONIX40 M1 PO; +PROZAC20 MG PO; +SENNA PO; +TYLENOL325 MG PO
[2017-04-08] MEDS ORDERED: COZAAR 50 MG TA50 M2 PO (17:05)
== END 2017-04-08 17:29 | disposition home or self-care (01) ==
LOC: ER 16:36
DX: I10 Essential (primary) hypertension (principal); E78.00 Pure hypercholesterolemia, unspecified; Z86.73 Personal history of transient ischemic attack (TIA), and cerebral infarction without residual deficits; F32.9 Major depressive disorder, single episode, unspecified; Z79.82 Long term (current) use of aspirin

== ENCOUNTER → 2017-06-20 | Outpatient (CLI) | payer OTHER ==
[~2017-06-20] MED LIST changes: +COZAAR 50 MG TA50 M2 PO
--- NOTE | ~2017-06-20 | SLE ---
[facility] [address] [place] [address] POLYSOMNOGRAPHY STUDY Name: LASHONDA BECKETT Room #: REG [facility].#: [id number] Admission: 06/20/17 Attend Phys: Real Byrd MD Discharge: Date of : 51 Report #: [id number] THIS REPORT FOR: //name// CC: Real Natarajan HISTORY: This is a 67-year-old, height 6 feet, weight 299 pounds. Usually goes to bed at 10:00 p.m., gets out of bed at 7:00 a.m., feels refreshed, positive snoring, no daytime somnolence. COMMENTS: Per the casting technician note, the patient spent all of his study on his back, head elevated 30-35 degrees, PAC and PVC is noted, trigeminal rhythm noted. BASELINE PORTION: Total recording time 281 minutes, sleep efficiency 36%. RESPIRATORY SUMMARY: Central apnea 0, mixed apnea 4, obstructive apnea 12, and hypopnea 26. Apnea-hypopnea index 25 events per sleep hour. Respiratory effort related arousal 0 events per sleep hour. All sleep and supine position. Periodic limb movement with arousal index of 0.6 events per sleep hour. A 69% of time in snoring. Low oxygen saturation 82%, spending 4% of recording time less than 90%. CPAP TITRATION: Titrated 8 and 9 cm water pressure, 9 cm water pressure for 41 minutes, which 21 minutes was in REM sleep. Central apnea 1, hypopnea, 1, apnea-hypopnea index 2.9 events per sleep hour. Low oxygen saturation 91%. IMPRESSION: 1. Obstructive sleep apnea/hypopnea, G47.33. 2. PAC/PVC in rhythm abnormality. 3. Periodic limb movement with arousal index 0.6 events per sleep hour. 4. CPAP improves the patient's apnea-hypopnea index, snoring and desaturation. SUGGESTIONS: 1. In addition to his specific therapy, the patient should be cautioned regarding driving or operating dangerous machinery unless fully alert. The patient will be cautioned regarding the use of respiratory depressants. TSH and weight loss is recommended. 2. Oral appliance or appropriate surgery may be considered with appropriate followup. 3. The usual sleep apnea suggestions are recommended. 4. An auto titrating CPAP between 5 and 12 cm water pressure is initially [facility] [address] [place] [address] POLYSOMNOGRAPHY STUDY Name: LASHONDA BECKETT Room #: REG [facility]#: [id number] Admission: 06/20/17 Attend Phys: Real Byrd MD Discharge: Date of : 51 Report #: [id number] recommended. During our study, a Respironics Gail View large mask was used with heated humidity. 5. Further evaluation regarding arrhythmias is recommended. 6. If signs and symptoms do not improve with therapy, further evaluation recommended. Please do not hesitate to contact me if I may be of further assistance. By: 53 [id number] Real Byrd MD /katrin
== END ==
LOC: SLEEPLAB 05-31 09:13 → EDSTATUS 05-31 09:14 → SLEEPLAB 05-31 09:17
DX: G47.33 Obstructive sleep apnea (adult) (pediatric) (principal)

== ENCOUNTER → 2017-10-31 | Outpatient (CLI) | payer OTHER | LOC: RAD 15:41 | DX: M17.12 Unilateral primary osteoarthritis, left knee (principal) ==

== ENCOUNTER → 2020-05-26 | Outpatient (CLI) | payer OTHER | LOC: ULTRA 13:12 | PROVIDERS: ATTEND Internal Medicine Nephrology | DX: N28.1 Cyst of kidney, acquired (principal); N18.3 Chronic kidney disease, stage 3 (moderate) ==

== ENCOUNTER → 2020-07-02 | Outpatient (CLI) | payer OTHER | LOC: RAD 15:47 | PROVIDERS: ATTEND Internal Medicine Pulmonary Disease | DX: I51.7 Cardiomegaly (principal); I77.810 Thoracic aortic ectasia ==

== ENCOUNTER → 2020-07-09 | Outpatient (CLI) | payer OTHER | LOC: CAT 10:06 → SLEEPLAB 16:11 → CAT 16:36 | PROVIDERS: ATTEND Internal Medicine Pulmonary Disease | DX: J18.1 Lobar pneumonia, unspecified organism (principal) ==

== ENCOUNTER → 2020-07-09 | Outpatient (CLI) | payer OTHER ==
--- NOTE | 2020-07-11 11:26 | SLE ---
[facility] [place] [address] POLYSOMNOGRAPHY STUDY Name: LASHONDA BECKETT Room #: REG [facility]#: [id number] Admission: 07/09/20 Attend Phys: Spike Olivares MD Discharge: Date of : 52 Report #: [id number] THIS REPORT FOR: //name// CC: Salvatore Olivares MD DATE OF SERVICE: 07/10/2020 HOME SLEEP STUDY REFERRING PHYSICIAN: Dr. Spike Olivares. The patient is a 70-year-old who weighs 320 pounds with a BMI of 43.4. The patient's Lester score was 6. The patient underwent a home sleep study performed at [facility]. Total recording time was 465 minutes. During the night study, the patient had 57 obstructive apneas, 245 central apneas and 69 mixed apneas. The patient's AHI was 51 per hour. Nocturnal oximetry study revealed an average oxygen saturation of 95% with lowest of 62%. A 55 minutes were spent in oxygen saturation of less than 90% and 26 minutes with saturation of less than 85%. Mean heart rate was 57 beats per minute with a maximum of 138 beats per minute. IMPRESSION: 1. Severe sleep apnea. It was mixed apnea with combination of central and obstructive apneas. 2. Nocturnal hypoxia secondary to sleep apnea. RECOMMENDATIONS: 1. The patient has mixed apnea. The patient would benefit from in-lab CPAP titration study. Patient may need BIPAP. 2. Once the patient is optimally treated, then follow up in 4-6 weeks to assess compliance with PAP therapy and to document clinical improvement. 3. Weight loss is advised. 4. Avoid CENTRAL SUPPLY WORKER depressants. 5. Cautioned regarding driving until symptoms of sleep apnea resolve with the above recommendations. <ELECTRONICALLY SIGNED> By: Walker Enciso MD 07/11/20 1126 5 0824 Walker Enciso MD /nt
== END ==
LOC: SLEEPLAB 14:55
PROVIDERS: ATTEND Internal Medicine Pulmonary Disease
DX: G47.30 Sleep apnea, unspecified (principal); R09.02 Hypoxemia

== ENCOUNTER → 2020-07-17 | Outpatient (CLI) | payer OTHER | LOC: SJCVCIMAG | PROVIDERS: ATTEND Internal Medicine Cardiovascular Disease | DX: I35.1 Nonrheumatic aortic (valve) insufficiency (principal); I51.7 Cardiomegaly ==

== ENCOUNTER → 2020-08-05 | Outpatient (CLI) | payer OTHER | LOC: SJCVCIMAG 07-23 09:05 | PROVIDERS: ATTEND Internal Medicine Cardiovascular Disease | DX: R06.02 Shortness of breath (principal); R06.00 Dyspnea, unspecified; R94.31 Abnormal electrocardiogram [ECG] [EKG]; E78.5 Hyperlipidemia, unspecified; I10 Essential (primary) hypertension; E78.00 Pure hypercholesterolemia, unspecified; Z79.899 Other long term (current) drug therapy ==

== ENCOUNTER → 2020-08-13 | Outpatient (CLI) | payer OTHER | LOC: LAB 08:17 | PROVIDERS: ATTEND Neuromusculoskeletal Medicine & OMM | DX: Z20.828 Contact with and (suspected) exposure to other viral communicable diseases (principal) ==

== ENCOUNTER → 2020-08-21 | Outpatient (CLI) | payer OTHER | LOC: LAB 14:09 | PROVIDERS: ATTEND Internal Medicine Pulmonary Disease | DX: Z20.828 Contact with and (suspected) exposure to other viral communicable diseases (principal) ==

== ENCOUNTER → 2020-08-25 | Outpatient (CLI) | payer OTHER ==
--- NOTE | 2020-09-03 16:47 | SLE ---
[facility] [place] [address] POLYSOMNOGRAPHY STUDY Name: LASHONDA BECKETT Room #: REG ALETA Samir#: [id number] Admission: 08/25/20 Attend Phys: Walker Enciso MD Discharge: Date of : 52 Report #: [id number] THIS REPORT FOR: cc: Salvatore Natarajan,Walker Yee MD ~ CC: Walker OLIVARES MD DATE OF SERVICE: 08/25/2020 SLEEP STUDY ATTENDING PHYSICIAN: Spike Olivares M.D. The patient is a 70-year-old who weighs 320 pounds with a BMI of 43.4. The patient had a home sleep study and was found to have severe sleep apnea. The patient had mixed sleep apnea and was noted to have 57 obstructive apneas, 245 central apneas and 69 mixed apneas. The patient's AHI was 51 per hour. The patient was referred for in-lab CPAP titration study. During the night of the study, the patient spent 474 minutes in bed and slept for 286 minutes with a low sleep efficiency of 60%. Sleep latency was 39 minutes with a REM latency of 132 minutes. Sleep architecture showed increased stage 1 and stage 2 sleep, absent slow wave and normal REM sleep. EKG monitoring revealed an average heart rate of 53 beats per minute with a maximum of 92 beats per minute. There were PVCs seen throughout the night. No sustained arrhythmias observed. No clinically significant PLM seen. The patient was started on CPAP at a pressure of 5 cm water and titrated up to 9 cm water. However, optimum CPAP pressure was not achieved due to persistent central apneas. At a pressure of 9 cm water, the patient slept for 65.7 minutes. The patient had supine sleep, but no REM sleep. The patient's AHI was 62 per hour, which also included 53 central apneas. At a lower pressure of 8 cm water, the patient slept for 37 minutes. The patient's AHI was reduced to 13 per hour, which included 7 hypopneas and 1 central apnea. Oxygen saturations remained in the low to mid 80s due to apneas. Optimum CPAP pressure was not achieved. The patient would benefit from BiPAP. IMPRESSION: 1. Severe mixed sleep apnea diagnosed by home sleep study. 2. No clinically significant periodic limb movements. [facility] [address] [place] [address] POLYSOMNOGRAPHY STUDY Name: LASHONDA BECKETT Room #: REG CURTISFrance Buenrostro#: [id number] Admission: 08/25/20 Attend Phys: Walker Enciso MD Discharge: Date of : 52 Report #: [id number] 3. Abnormal EKG with PVC'S throughout the night. RECOMMENDATIONS: 1. Optimum CPAP pressure was not achieved on the night of the study due to persistent central apneas. I would recommend that the patient should be tried on an auto BiPAP at a maximum IPAP pressure of 20 cm water and a minimum EPAP pressure of 10 cm water with pressure support of 4. 2. The patient should have a followup in 4-6 weeks to assess compliance and to document clinical improvement. I would recommend review of the download data and if the AHI remains more than 10 per hour and if it is predominantly central apneas, then a backup rate of 10 should be added to the BiPAP. 3. The patient's EKG was abnormal and should have a cardiac evaluation to rule out any underlying structural heart disease. 4. The patient should also have an echocardiogram to rule out any significant cardiomyopathy, which may be contributing to the central component of the sleep apnea. 5. Cautioned regarding driving until symptoms of sleep apnea resolve with the above recommendation. 6. 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 <ELECTRONICALLY SIGNED> By: Walker Enciso MD 09/03/20 1647 [id number] Walker Enciso MD /nt
== END ==
LOC: SLEEPLAB 13:46
PROVIDERS: ATTEND Internal Medicine Critical Care Medicine
DX: G47.33 Obstructive sleep apnea (adult) (pediatric) (principal)

== ENCOUNTER → 2021-04-24 | Outpatient (CLI) | payer OTHER | LOC: RAD 10:35 | PROVIDERS: ATTEND Internal Medicine Pulmonary Disease | DX: R05 Cough (principal); G47.33 Obstructive sleep apnea (adult) (pediatric) ==

== ENCOUNTER 2021-06-02 15:15 | Inpatient (IN) | payer OTHER ==
[~2021-06-02] VITALS: Ht 180.3 cm; Wt 137.9 kg
[2021-06-02 15:19] VITALS: BP 129/97
[2021-06-02 16:15] LABS: URINE BLOOD 3+ (Negative); URINE COLOR YELLOW; URINE GLUCOSE-RANDOM* NEGATIVE (Negative); URINE KETONES 2+ (Negative); URINE NITRITE-REFLEX NEGATIVE (Negative); URINE PROTEIN (DIPSTICK) 2+ (Negative); URINE SPECIFIC GRAVITY 1.025 (1.005-1.035)
[2021-06-02 16:16] LABS: ABSOLUTE NEUTROPHILS 12.4 thou/uL (1.4-8.2); BASOPHILS 0.3 % (0.0-2.0); EOSINOPHILS 0.4 % (0.0-3.0); HEMATOCRIT 41.4 % (42.0-52.0); LYMPHOCYTES 7.3 % (24.0-44.0); MCHC 31.5 g/dL (28.0-37.0); MCV 88.9 fL (80.0-100.0); MONOCYTES 7.2 % (1.0-8.0); PLATELET COUNT 184 thou/uL (150-400); POLYS 84.8 % (36.0-66.0); RBC 4.66 mil/uL (4.50-6.00); RDW 15.1 % (10.5-14.5); WBC 14.6 thou/uL (4.0-11.0)
[2021-06-02 16:17] LABS: ICTOTEST (BILI CONFIRMATORY) Negative (Negative); URINE BILIRUBIN NEGATIVE (Negative); URINE CLARITY HAZY; URINE LEUKOCYTES-REFLEX 1+ (Negative)
[2021-06-02 16:35] LABS: SQUAMOUS None Seen /LPF (0-3); URINE RBC >20 Many /HPF (NONE SEEN); URINE WBC-REFLEX >25 Many /HPF (0-5)
[2021-06-02 16:36] LABS: CASTS None Seen /LPF (None Seen); CRYSTALS None Seen /LPF (None Seen)
[2021-06-02 16:38] LABS: APTT 26.7 Seconds (24.5-32.8); INR 1.17; PROTIME 12.7 Seconds (10.5-12.1)
[2021-06-02 17:14] LABS: CREATININE 1.7 mg/dL (0.7-1.3); POTASSIUM 4.4 mmol/L (3.5-5.1)
[2021-06-02 17:15] LABS: ALBUMIN 3.6 g/dL (3.4-5.0); CALCIUM 8.5 mg/dL (8.5-10.1)
[2021-06-02 17:16] LABS: TOTAL PROTEIN 7.8 g/dL (6.4-8.2)
[2021-06-02 17:30] LABS: TOTAL BILIRUBIN 1.8 mg/dL (0.2-1.0)
[2021-06-02 19:11] VITALS: BP 146/74
[2021-06-02 20:38] VITALS: BP 143/82
--- NOTE | 2021-06-03 02:47 | NUR ---
PT ADMITTED TO THE UNIT FROM THE ER WITH C/O PAINFUL URINATION .PT IS A/O X4.PT IS ON BEDREST FOR PT/OT TO EVALUATE.PT HAS RT SIDED WITH POST STROKE.PT USES A WHEELCHAIR AT HOME .PT IS ON 2L OF O2 VIA NC.PT HAS A ROBERTSON CATHETER IN PLACE.ADMISSION REASSESSMENT DONE.WILL CONTINUE TO MONITOR PER POC
[2021-06-03 06:43] LABS: HEMOGLOBIN 11.7 gm/dL (14.0-18.0); MCH 28.8 pg (26.0-34.0); MCHC 32.5 g/dL (28.0-37.0); MCV 88.5 fL (80.0-100.0); RBC 4.07 mil/uL (4.50-6.00); RDW 15.1 % (10.5-14.5); WBC 13.4 thou/uL (4.0-11.0)
[2021-06-03 06:57] LABS: CALCIUM 8.1 mg/dL (8.5-10.1); CREATININE 1.3 mg/dL (0.7-1.3); POTASSIUM 3.8 mmol/L (3.5-5.1)
--- NOTE | 2021-06-03 07:16 | EKG ---
[address] [place] [address] ELECTROCARDIOGRAM REPORT Name: LASHONDA BECKETT Room #: 463-P ADM IN M.R.#: [id number] Admission: 06/02/21 Attend Phys: Sloan Mccullough MD Discharge: Date of : 52 Report #: [id number] [facility] ED Test Date: 2021-06-02 Test Time: 16:05:33 Pat Name: LASHONDA BECKETT Department: Room: 463 Gender: M Deputy Chief Executive: zack : 1950 Requested By: Gaudencio Huertas Order Number: [id number] MD: Leo Wilkins Measurements Intervals [place] Rate: 101 P: 36 WI: 167 QRS: -28 QRSD: 107 T: 58 QT: 326 QTc: 423 Interpretive Statements Sinus tachycardia Ventricular premature complex Borderline left axis deviation Borderline T wave abnormalities Compared to ECG 03/03/2017 04:51:49 Sinus rhythm no longer present Possible ischemia no longer present T-wave abnormality still present Electronically Signed On 06-03-2021 7:16:51 CDT by Leo Wilkins [email or web address] <ELECTRONICALLY SIGNED> By: Leo Wilkins MD, MERGED WITH [facility] 06/03/21 0716 1605 [id number] Leo Wilkins MD, MERGED WITH [facility] /EPI
[2021-06-03 07:52] VITALS: BP 123/60
--- NOTE | 2021-06-03 13:34 | NUR ---
Alert and orientated X4. Calm, cooperative and compliant. Stated he had scrotal pain this AM but then it resolved. Spoke with after lunch and she called desk and stated was crying. Went to assess and pt was sitting calmly in chair. Ranked scrotal pain 5/10, T 98.9 orally, Tylenol given. Up ambulating with walker with PT. When entered room at 0730 FIO2 was off, O2 sat 94% without s/o distress. Breath sounds clear, bilaterally equal. Reg HR auscultated. Color pink with brisk capillary refill and palpable peripheral pulses. Yellow urine per weaver, leaking at insertion site, scrotom swollen, painful at times. Active bowel sounds over soft, large, rounded abdomen. Currently sitting in chair. NS infusing per R AC at 75 cc/hr, site soft and flat, flushes without difficulty.
--- NOTE | 2021-06-03 16:35 | NUR ---
PT ADMITTED RELATED TO UTI, FEVER, SEPSIS. CM REVIEWED CHART AND SPOKE WITH CARE TEAM. CM MET WITH PT AT BEDSIDE THIS DAY. PT APPEARED TO BE A&0 X4. CM ROLE INTRODUCED. PT INDICATED HE RESIDES IN AN APARTMENT WITH HIS SPOUSE. PT INDICATED NO STEPS TO ENTER AND 1 STEP INSIDE. 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 PT INDICATED HE HAD HH IN THE PAST AND HAD BEEN ON 5N IN 2017 FOLLOWING STROKE. PT INDICATED HE HOPES TO BE ABLE TO DC HOME ONCE MEDICALLY STABLE. CARE TEAM INDICATING THAT PT MAY NEED 6 WEEKS IV ABX UPON DC. CM SPOKE WITH PT ABOUT HOME INFUSION VS SKILLED. HE IS TO DISCUSS WITH HIS AND INDICATE PREFERANCE. CM TO FOLLOW INDICATED WITH DC PLANNING.
[2021-06-03 16:59] VITALS: BP 121/76
[2021-06-03 17:29] VITALS: BP 145/87
[2021-06-03 19:32] VITALS: BP 119/71
--- NOTE | 2021-06-04 03:19 | NUR ---
ASSUMED PT CARE AT 1935. PT IS ALERT AND ORIENTEX4. PT HAS R SIDED WEAKNESS PT HAS ROBERTSON IN PLACE. PT IS TOLERATING RA. PT C/O ABD PAIN WHICH MANAGED BY PRN PAIN MEDS. PT DID NOT VERBALIZE ANY OTHER CONCERNS AND NO VISIBLE SIGN OF DISTRESS WAS NOTED. FALL PRECAUTIONS IN PLACE WITH CALL LIGHT WITHIN REACH. WILL CONTINUE TO MONITOR.
[2021-06-04 07:58] VITALS: BP 146/95
[2021-06-04 10:40] LABS: HEMATOCRIT 37.1 % (42.0-52.0); HEMOGLOBIN 11.9 gm/dL (14.0-18.0); MCH 28.1 pg (26.0-34.0); MCV 87.9 fL (80.0-100.0); RBC 4.22 mil/uL (4.50-6.00); RDW 14.7 % (10.5-14.5); WBC 11.3 thou/uL (4.0-11.0)
[2021-06-04 10:54] LABS: CALCIUM 8.6 mg/dL (8.5-10.1); CREATININE 1.2 mg/dL (0.7-1.3); MAGNESIUM 1.8 mg/dL (1.8-2.4); POTASSIUM 3.7 mmol/L (3.5-5.1)
[2021-06-04 11:40] VITALS: BP 125/85
--- NOTE | 2021-06-04 15:44 | NUR ---
Nurse Analysis Reporting Developer spoke with patients and was able to verify who she was and gave her the 4 digit code to use when she wants to call to get information about the patient. Family was very kind.
--- NOTE | 2021-06-04 16:43 | NUR ---
UROLOGY CONSULTED. CARE TEAM INDICATING THAT PT WILL NEED 6 WEEKS ORAL ABX UPON DC. CM CLARIFIED THAT FOR PT AND SPOUSE AT BEDSIDE THIS AM. THEY INDICATED THAT IN THAT CASE THEY WOULD PREFER FOR PT TO DC HOME WITH HH ONCE MEDICALLY STABLE. CM FOLLOWING REGARDING DC PLANNING.
[2021-06-04 17:47] VITALS: BP 131/92
--- NOTE | 2021-06-04 18:23 | NUR ---
ASSUMED CARE OF PATIENT AT SHIFT CHANGE. ASSESSMENT CHARTED. MEDS ADMINISTERED PER EMAR. VSS. PATIENT IS A&O BUT SEEMS A BIT FORGETFUL & CONFUSED AT TIMES. PATIENT C/O SCROTAL PAIN AND ABD PAIN. NEW ORDER FOR HYDROMORPHONE ON BOARD. ICE PACK PLACED ON SCROTUM & SCROTAL US ORDERED; SEE NOTES. PATIENT WORKED W PT/OT AND DID WELL. UP SBA W TRANSFERS. SUPERINTENDENT RENTING MANAGING SPOKE TO REGARDING INCIDENT THAT OCCURED YESTERDAY. PAIN NOT PROGRESSING. PROVIDER AWARE. CONTINUING TO MONITOR FREQUENTLY. WILL ENDORSE TO NOC NURSE
[2021-06-04 19:34] VITALS: BP 159/90
--- NOTE | 2021-06-05 04:29 | NUR ---
ASSUMED PT CARE AT 1910. PT IS ALERT AND ORIENTED X4. PT HAS R SIDED WEAKNESS WITH MOBILITY. PT C/O PAIN TO THE ABD. PT PREFERS HYDROMORPHONE TO TRAMADOL FOR PAIN MANAGEMENT. PT HAS ROBERTSON IN PLACE. PT IS UPX1 WITH GB AND WALKER. PT TOLERATING RA. NO VISIBLE SIGN OF DISTRESS NOTED. FALL PRECAUTIONS IN PLACE. WILL CONTINUE TO MONITOR.
[2021-06-05 05:21] LABS: HEMATOCRIT 36.3 % (42.0-52.0); MCHC 33.2 g/dL (28.0-37.0); MCV 87.4 fL (80.0-100.0); RBC 4.15 mil/uL (4.50-6.00); RDW 14.8 % (10.5-14.5); WBC 8.7 thou/uL (4.0-11.0)
[2021-06-05 05:40] LABS: CALCIUM 8.5 mg/dL (8.5-10.1); MAGNESIUM 1.9 mg/dL (1.8-2.4); POTASSIUM 3.7 mmol/L (3.5-5.1)
[2021-06-05 07:36] VITALS: BP 147/82
--- NOTE | 2021-06-05 15:23 | NUR ---
PATIENT REMIAINS A&OX4 BUT A LITTLE FORGETFUL AT TIMES. PATIENT C.O CONSTANT PAIN RADIATING FROM ABDOMEN TO TESTICLES RELIEVED BY PRN PAIN ANLGESIC. PATIENT WORKED W PT/OT; DOES GET TACHYCARDIC W EXERTION & SOME SHORTNESS OF BREATH. TESTICLES ELEVATED WITH TOWELS & INTERDRY. ICE PACK PLACED. PATIENT VOICES NO NEW NEEDS. SPOUSE AT BEDSIDE & GIVEN EDUCATION ON PROSTATITIS. CONTINUING FREQUENT MONITORING
[2021-06-05 15:24] VITALS: BP 147/82
[2021-06-05 15:45] VITALS: BP 147/83
--- NOTE | 2021-06-05 16:11 | NUR ---
CARE TEAM INDICATED THAT PT IS PROGRESSING TOWARD GOAL OF DISCHARGE. CM MET WITH PT AND SPOUSE AT BEDSIDE THIS DAY AND THEY ARE STILL INDICATING DESIRE TO DC HOME WITH HH ONCE MEDICALLY STABLE. THEY INDICATED THEY WANTED TO USE [facility] AGAIN THEY HAD THEM IN THE PAST. LIAISON NOTIFIED AND SHE FAXED REFERRAL TO OFFICE. CARE TEAM INDICATED THAT PT MAY BE MEDICALLY STABLE TO DC OVER WEEKEND. FAX ORDERS TO CALL OFFICE AT TO NOTIFY THEM OF DISCHARGE. CM FOLLOWING INDICATED WITH DC PLANNING.
[2021-06-05 19:50] VITALS: BP 144/81
--- NOTE | 2021-06-06 02:42 | NUR ---
TODAY THIS PT HAS BEEN NSR ON THE TELE MONITOR WITH SOME STATED PAIN IN WHICH HE WAS MEDICATED. HE HAS BEEN GETTING TURNED Q2 HOURS IN HIS BED AND HAS OTHERWISE BEEN ASLEEP FOR MOST OF THE NIGHT AWAITING FOR THE NEXT PLAN. HE IS TOLERATING HIS ROBERTSON WELL.
[2021-06-06 06:03] LABS: HEMOGLOBIN 12.6 gm/dL (14.0-18.0); MCH 28.7 pg (26.0-34.0); MCV 86.8 fL (80.0-100.0); RBC 4.38 mil/uL (4.50-6.00); RDW 14.9 % (10.5-14.5)
[2021-06-06 06:25] LABS: CALCIUM 8.8 mg/dL (8.5-10.1); CREATININE 1.1 mg/dL (0.7-1.3); POTASSIUM 3.8 mmol/L (3.5-5.1)
[2021-06-06 09:19] VITALS: BP 189/119
--- NOTE | 2021-06-06 11:04 | NUR ---
ASSUMED PT CARE THIS AM. PT A&OX4, ABLE TO MAKE NEEDS KNOWN. PATIENT REMAINS CONTINENT, UP TO BATHROOM WITH ASSIST. PATIENT HAS WEAKNESS ON RIGHT LAURA FROM A PREVIOUS STROKE. PATIENT IS ON ROOM AIR. PATIENT REPORTS PAIN TO THE SCROTUM, PAIN MEDICATION GIVEN PER EMAR. HOSPITALIST MADE AWARE OF PATIENTS BLOOD PRESSURE. FALL PRECAUTIONS ARE IN PLACE, CALL LIGHT WITHIN REACH.
[2021-06-06 12:05] VITALS: BP 145/97
[2021-06-06 16:06] VITALS: BP 176/105
[2021-06-06 19:45] VITALS: BP 141/88
--- NOTE | 2021-06-07 03:18 | NUR ---
pain controlled this shift. patient needs assistance x1 with transfer, adl, toileting and transfer. cath care done. fall precaution in plcae. patient in bed asleep at this time breathing regular and unlaboured.
[2021-06-07 05:29] LABS: HEMATOCRIT 38.7 % (42.0-52.0); HEMOGLOBIN 12.8 gm/dL (14.0-18.0); MCH 28.8 pg (26.0-34.0); MCV 87.4 fL (80.0-100.0); RBC 4.43 mil/uL (4.50-6.00); WBC 8.1 thou/uL (4.0-11.0)
[2021-06-07 06:07] VITALS: BP 135/78
[2021-06-07 06:11] LABS: CALCIUM 8.7 mg/dL (8.5-10.1); CREATININE 1.1 mg/dL (0.7-1.3); POTASSIUM 3.8 mmol/L (3.5-5.1)
[2021-06-07 09:01] VITALS: BP 154/92
--- NOTE | 2021-06-07 12:16 | NUR ---
ASSUMED PT CARE THIS AM. PT A&OX4, ABLE TO MAKE NEEDS KNOWN. PATIENT ROBERTSON WAS DISCONTINUED THIS SHIT, VOIDING WELL. PATIENT REPORTING PAIN IN HIS SCROTUM, RELIEVED WITH PAIN MEDICATION GIVEN PER EMAR. PATIENT ON ROOM AIR. FALL PRECAUITONS ARE IN PLACE. IV PATENT, SALINE LOCKED.
[2021-06-07 17:00] VITALS: BP 149/89
[2021-06-07 19:54] VITALS: BP 136/80
--- NOTE | 2021-06-08 01:28 | NUR ---
CARE ASUMED AT 1900, PATIENT WAS IN BED ASLEEP. PAIN CONTROLLED THIS SHIFT. PATIENT URINE IS ORANGE IN COLOR D/T MEDICATION.PATIENT ENCOURAGED FLUIDS. BLADDER SCAN DONE PATIENT HAD 50 ML RESIDUAL. PATIENT HAS BLE EDEMA +2 ON LLE. PATIENT INCONTIENT PERICARE AND BARRIER CREAM APPLIED. FALL PRECAUTION INPLACE. PATIENT IN BED ASLEEP AT THIS TIME BREATHING REGULAR AND UNLABOURED.
[2021-06-08 03:03] LABS: HEMATOCRIT 36.8 % (42.0-52.0); HEMOGLOBIN 12.1 gm/dL (14.0-18.0); MCH 28.8 pg (26.0-34.0); MCHC 32.8 g/dL (28.0-37.0); MCV 87.6 fL (80.0-100.0); RBC 4.2 mil/uL (4.50-6.00); RDW 14.8 % (10.5-14.5)
[2021-06-08 03:20] LABS: CALCIUM 8.2 mg/dL (8.5-10.1); CREATININE 1.2 mg/dL (0.7-1.3); MAGNESIUM 1.9 mg/dL (1.8-2.4); POTASSIUM 3.9 mmol/L (3.5-5.1)
[2021-06-08 08:09] VITALS: BP 136/76
[2021-06-08] MEDS ORDERED: FLOMAX0.4 MG PO (13:32)
[2021-06-08] MEDS ORDERED: HYDROCODON-ACE1 EAC7 PO (13:34)
[2021-06-08] MEDS ORDERED: NORVASC10 MG PO (13:34)
[2021-06-08] MEDS ORDERED: LEVOFLOXACIN500 MG PO (13:35)
[2021-06-08 14:34] VITALS: BP 147/82
--- NOTE | 2021-06-08 15:15 | NUR ---
Assumed pt care at 7am.Pt in bed resting .Assessment completed.vss.Pt c/o groin pain .Am meds given with tramadol and partial relief noted.Dr Gunderson here,dc order noted. Pt called and notified.She said she will be coming around 5pm to warp picker the pt.Fall bundle in place.Report off to Pam maya at 1520.
--- NOTE | 2021-06-08 18:06 | NUR ---
PATIENT OFF UNIT AT 1800. IV REMOVED.
== END 2021-06-08 17:58 | disposition home or self-care (01) | DRG 871 ==
LOC: ER 15:15 → EROBS 17:56 → 4W 17:56
PROVIDERS: Emergency Medicine; Internal Medicine; ADMIT Hospitalist; ATTEND Hospitalist
DX: A41.9 Sepsis, unspecified organism (principal); N17.0 Acute kidney failure with tubular necrosis; N30.01 Acute cystitis with hematuria; I69.351 Hemiplegia and hemiparesis following cerebral infarction affecting right dominant side; Z68.41 Body mass index [BMI] 40.0-44.9, adult; I10 Essential (primary) hypertension; E78.5 Hyperlipidemia, unspecified; F32.9 Major depressive disorder, single episode, unspecified; E66.9 Obesity, unspecified; N41.9 Inflammatory disease of prostate, unspecified; R33.9 Retention of urine, unspecified; N45.3 Epididymo-orchitis; G47.00 Insomnia, unspecified; R53.81 Other malaise; K59.00 Constipation, unspecified; Z79.82 Long term (current) use of aspirin; Z79.899 Other long term (current) drug therapy; Z82.49 Family history of ischemic heart disease and other diseases of the circulatory system; Z83.3 Family history of diabetes mellitus; Z82.3 Family history of stroke; Z20.822 Contact with and (suspected) exposure to COVID-19
CPT/HCPCS: 10045